=== PATIENT | male | born 1945 | race Two or more races ===

== ENCOUNTER 2022-03-01 07:12 | Day surgery (SDC) | payer OTHER | END 2022-03-01 13:25 | disposition home or self-care (01) | LOC: AMB-ENDOS 07:12 | PROVIDERS: ATTEND Colon & Rectal Surgery | DX: D12.3 Benign neoplasm of transverse colon (principal); K57.30 Diverticulosis of large intestine without perforation or abscess without bleeding; K64.4 Residual hemorrhoidal skin tags; Z86.010 Personal history of colon polyps; I10 Essential (primary) hypertension ==

== ENCOUNTER 2022-03-15 14:15 | Inpatient (IN) | payer OTHER ==
[~2022-03-15] VITALS: Ht 167.6 cm; Wt 68.0 kg
[2022-03-16] MEDS ORDERED: GLUMETZA1000 MG PO (11:52)
[2022-03-16] MEDS ORDERED: LEVOXYL25 MCG PO (11:52)
[2022-03-20] MEDS ORDERED: PROCTOCREAM-HC30 GM (13:10)
[2022-03-20] MEDS ORDERED: FAMOTIDINE20 MG (13:10)
[2022-03-20] MEDS ORDERED: TRADJENTA5 MG (13:10)
[2022-03-20] MEDS ORDERED: RESTORIL15 MG (13:10)
[2022-03-20] MEDS ORDERED: OMEPRAZOLE20 MG (13:10)
[2022-03-20] MEDS ORDERED: AMLODIPINE BESYL5 MG (13:10)
[2022-03-20] MEDS ORDERED: BUPROPION XL300 MG (13:10)
[2022-03-20] MEDS ORDERED: BUTALB-ACETAMI1 EAC2 (13:10)
[2022-03-20] MEDS ORDERED: SUCRALFATE1 GM (13:10)
[2022-03-20] MEDS ORDERED: METOCLOPRAMIDE H5 MG (13:10)
[2022-03-20] MEDS ORDERED: ATORVASTATIN CA20 MG (13:10)
[2022-03-20] MEDS ORDERED: LORAZEPAM2 MG (13:10)
[2022-03-20] MEDS ORDERED: RAMIPRIL10 MG (13:10)
[2022-03-20] MEDS ORDERED: FENOFIBRATE145 MG (13:10)
[2022-03-20] MEDS ORDERED: TERBINAFINE HC250 MG (13:11)
== END 2022-03-26 13:27 | disposition home or self-care (01) | DRG 330 ==
LOC: SURG 03-20 09:45 → SURH 03-20 11:05 → O/R 03-20 11:05 → SURH 03-20 21:07
PROVIDERS: ADMIT Colon & Rectal Surgery; ATTEND Colon & Rectal Surgery
PROC: 0DBP4ZZ Excision of Rectum, Percutaneous Endoscopic Approach (ICD-10-PCS; 2022-03-20)
PROC: 07BC4ZZ Excision of Pelvis Lymphatic, Percutaneous Endoscopic Approach (ICD-10-PCS; 2022-03-20)
PROC: 0DJD8ZZ Inspection of Lower Intestinal Tract, Via Natural or Artificial Opening Endoscopic (ICD-10-PCS; 2022-03-20)
PROC: 4A1BXSH Monitoring of Gastrointestinal Vascular Perfusion using Indocyanine Green Dye, External Approach (ICD-10-PCS; 2022-03-20)
PROC: 3E0F7SF Introduction of Other Gas into Respiratory Tract, Via Natural or Artificial Opening (ICD-10-PCS; 2022-03-20)
PROC: 0DTN4ZZ Resection of Sigmoid Colon, Percutaneous Endoscopic Approach (ICD-10-PCS; principal; 2022-03-20 09:45)
PROC: BW21ZZZ Computerized Tomography (CT Scan) of Abdomen and Pelvis (ICD-10-PCS; 2022-03-24)
PROC: 3E0336Z Introduction of Nutritional Substance into Peripheral Vein, Percutaneous Approach (ICD-10-PCS; 2022-03-24)
PROC: 8E0ZXY6 Isolation (ICD-10-PCS; 2022-03-25)
DX: C19 Malignant neoplasm of rectosigmoid junction (principal); A04.72 Enterocolitis due to Clostridium difficile, not specified as recurrent; K91.89 Other postprocedural complications and disorders of digestive system; K56.7 Ileus, unspecified; K62.6 Ulcer of anus and rectum; K63.5 Polyp of colon; R59.0 Localized enlarged lymph nodes

== ENCOUNTER 2022-04-03 09:00 | Inpatient (IN) | payer OTHER ==
[~2022-04-03] VITALS: Ht 167.6 cm; Wt 70.3 kg
[~2022-04-03 09:00] MED LIST: AMLODIPINE BESYL5 MG; ATORVASTATIN CA20 MG; BUPROPION XL300 MG; BUTALB-ACETAMI1 EAC2; FAMOTIDINE20 MG; FENOFIBRATE145 MG; GLUMETZA1000 MG PO; LEVOXYL25 MCG PO; LORAZEPAM2 MG; METOCLOPRAMIDE H5 MG; OMEPRAZOLE20 MG; PROCTOCREAM-HC30 GM; RAMIPRIL10 MG; RESTORIL15 MG; SUCRALFATE1 GM; TERBINAFINE HC250 MG; TRADJENTA5 MG
--- NOTE | 2022-04-03 09:52 | NUR ---
SE RECIBE PTE ALERTO Y ACTIVO ACOMPANADO DE FAMILIAR. PTE FERBALIZA DOLOR ABDOMINAL Y DIARREAS LUEGO DE OPERACION DE COLON, DOLOR ABDOMINAL INTENSIFICANDO EL SABADO,04/01/22. PTE OPERADO POR DRA JEN MOSS, 03/20/22, QUIEN ENVIA PTE A ER POR SINTOMAS PRESENTES. SE ALEK SV, DXT ALTO POR MARLY COMER RECIENTEMNTE, PRESENTANDO FIEBRE. SE UBICA EN RYAN.
--- NOTE | 2022-04-03 10:45 | NUR ---
SE ORIENTA PTE SOBRE EL TRATAMIENTO ORDENADO POR EL DR GALVEZ PTE ALERTA Y ORIENTADO POR 3 SE RELAIZAN MUESTRAS DE LABORTORIO Y SE ADMINISTRAN MEDICAMENTOS JOSEMANUEL ORDENADO. PTE EN ESPERA DE ESTUDIO CT
== END 2022-04-11 13:06 | disposition home or self-care (01) | DRG 330 ==
LOC: ER 09:00 → SURH 13:26 → SEC-K 13:26 → SURH 13:42
PROVIDERS: ADMIT Colon & Rectal Surgery; ATTEND Colon & Rectal Surgery
PROC: BW21YZZ Computerized Tomography (CT Scan) of Abdomen and Pelvis using Other Contrast (ICD-10-PCS; 2022-04-03)
PROC: 0D1B4Z4 Bypass Ileum to Cutaneous, Percutaneous Endoscopic Approach (ICD-10-PCS; principal; 2022-04-04 10:30)
PROC: BW21YZZ Computerized Tomography (CT Scan) of Abdomen and Pelvis using Other Contrast (ICD-10-PCS; 2022-04-10)
DX: K55.9 Vascular disorder of intestine, unspecified (principal); C19 Malignant neoplasm of rectosigmoid junction; K52.89 Other specified noninfective gastroenteritis and colitis; D64.9 Anemia, unspecified; E03.9 Hypothyroidism, unspecified; E11.9 Type 2 diabetes mellitus without complications; Z79.4 Long term (current) use of insulin

== ENCOUNTER 2022-04-23 10:45 | Inpatient (IN) | payer OTHER ==
[~2022-04-23] VITALS: Ht 167.6 cm; Wt 59.9 kg
== END 2022-05-01 10:24 | disposition home or self-care (01) | DRG 391 ==
LOC: ER 10:45 → SURG 19:24
PROVIDERS: ADMIT Colon & Rectal Surgery; ATTEND Colon & Rectal Surgery
PROC: BW21YZZ Computerized Tomography (CT Scan) of Abdomen and Pelvis using Other Contrast (ICD-10-PCS; principal; 2022-04-23)
DX: K52.89 Other specified noninfective gastroenteritis and colitis (principal); K63.1 Perforation of intestine (nontraumatic); C19 Malignant neoplasm of rectosigmoid junction; K55.9 Vascular disorder of intestine, unspecified; K63.89 Other specified diseases of intestine; E03.9 Hypothyroidism, unspecified; D53.0 Protein deficiency anemia; D63.0 Anemia in neoplastic disease; E11.9 Type 2 diabetes mellitus without complications; Z79.4 Long term (current) use of insulin; D64.9 Anemia, unspecified; Z93.2 Ileostomy status

== ENCOUNTER 2022-11-03 05:44 | Day surgery (SDC) | payer OTHER | END 2022-11-03 11:30 | disposition home or self-care (01) | LOC: AMB-ENDOS 05:44 → CIR.AMB 09:45 → AMB-ENDOS 09:45 | PROVIDERS: ATTEND Colon & Rectal Surgery | DX: Z85.048 Personal history of other malignant neoplasm of rectum, rectosigmoid junction, and anus (principal); K62.4 Stenosis of anus and rectum; K62.89 Other specified diseases of anus and rectum; Z93.2 Ileostomy status; Z20.828 Contact with and (suspected) exposure to other viral communicable diseases ==

== ENCOUNTER 2022-11-20 07:01 | Day surgery (SDC) | payer OTHER ==
[~2022-11-20] VITALS: Ht 167.6 cm; Wt 63.0 kg
[2022-11-20] MEDS ORDERED: LOPERAMIDE2 MG (07:54)
[2022-11-20] MEDS ORDERED: AMLODIPINE BESY10 MG (07:54)
== END 2022-11-20 14:05 | disposition home or self-care (01) ==
LOC: CIR.AMB 07:01 → O/R 07:01 → SURH 07:01 → CIR.AMB 14:05 → O/R 14:05
PROVIDERS: ATTEND Colon & Rectal Surgery
DX: K56.691 Other complete intestinal obstruction (principal); Z85.048 Personal history of other malignant neoplasm of rectum, rectosigmoid junction, and anus; K66.0 Peritoneal adhesions (postprocedural) (postinfection); K52.9 Noninfective gastroenteritis and colitis, unspecified; Z93.2 Ileostomy status; Z08 Encounter for follow-up examination after completed treatment for malignant neoplasm